=== PATIENT | female | born 1955 | race Caucasian/White ===

== ENCOUNTER 2017-11-21 19:25 | Emergency (ER) | payer SELFPAY ==
[~2017-11-21] VITALS: Ht 154.9 cm; Wt 63.0 kg
[2017-11-21 20:17] LABS: Hematocrit 37.3 % (33.0-51.0); Hemoglobin 12.6 g/dL (11.5-16.0); Mean Corpuscular HGB 29.4 pg (26.0-34.0); Mean Corpuscular HGB Conc 33.8 g/dL (31.5-36.5); Mean Corpuscular Volume 87 fL (80-100); RDW Standard Deviation 38.6 fL (35.1-46.3); Red Blood Cell Count 4.29 M/mm3 (3.80-5.20); White Blood Cell Count 8.24 K/mm3 (4.00-11.30)
[2017-11-21 20:21] LABS: Mean Platelet Volume 10.7 fL (9.1-12.4); Platelet Count 233 K/mm3 (150-400)
[2017-11-21 20:38] LABS: BASOPHILS PERCENT MAN 0 % (0-2); EOSINOPHILS ABSOLUTE MAN 0.16 K/mm3 (0.00-0.68); EOSINOPHILS PERCENT MAN 2 % (0-6); LYMPHOCYTES % ATYPICAL MANUAL 8 % (0-0); LYMPHOCYTES ABSOLUTE MAN 4.36 K/mm3 (0.84-5.20); LYMPHOCYTES PERCENT MAN 45 % (21-46); MONOCYTES ABSOLUTE MAN 0.82 K/mm3 (0.16-1.47); MONOCYTES PERCENT MAN 10 % (4-13); NEUTROPHILS ABSOLUTE MAN 2.88 K/mm3 (1.96-9.15); SEG NEUTROPHILS PERCENT MAN 35 % (41-73); TOTAL CELLS COUNTED 100
[2017-11-21 20:41] LABS: Alanine Aminotransfer (ALT/SGP 22 U/L (12-78); Albumin, Blood 4.2 g/dL (3.4-5.0); Albumin/Globulin Ratio 1.1 (0.8-1.8); Alk Phos 60 U/L (50-136); Anion Gap 7 mmol/L (6-16); Aspartate Aminotrans (AST/SGOT 17 U/L (12-37); Bilirubin, Total 0.2 mg/dL (0.1-1.0); Blood Urea Nitrogen 11 mg/dL (8-24); Bun/Creatinine Ratio 14.2 (12.0-20.0); CO2, Blood 27 mmol/L (21-32); Calcium, Blood 8.8 mg/dL (8.5-10.1); Chloride, Blood 105 mmol/L (98-108); Creatinine, Blood 0.77 mg/dL (0.40-1.00); Globulin, Blood 3.7 g/dL (2.2-4.0); Glomerular Filtration Rate >60 (60-); Glucose, Blood 95 mg/dL (70-99); Potassium, Blood 3.5 mmol/L (3.5-5.5); Sodium, Blood 139 mmol/L (136-145); Total Protein, Blood 7.9 g/dL (6.4-8.2)
[2017-11-21 20:50] LABS: Source, Urine Clean Catch
[2017-11-21 20:57] LABS: Appearance, Urine Clear (Clear); Bilirubin, Urine Neg (Neg); Blood, Urine Neg (Neg); Color, Urine Yellow (P-Yellow); Glucose Qualitative, Urine Neg (Neg); Ketones, Urine Neg (Neg); Leukocyte Esterase, Urine Neg (Neg); Nitrite, Urine Neg (Neg); Protein, Urine Neg (Neg); Urobilinogen, Urine NORM (Normal)
[2017-11-21 20:58] LABS: Troponin I <0.015 ng/mL (0.000-0.040)
[2017-11-21] MEDS ORDERED: Zofran Odt4 MG SL (22:36)
[2017-11-21] MEDS ORDERED: Percocet 5-3251 EACH PO (22:36)
== END 2017-11-21 22:52 | disposition home or self-care (01) ==
LOC: ER 19:25
PROVIDERS: Physician Assistant
DX: R10.11 Right upper quadrant pain (principal); Z88.8 Allergy status to other drugs, medicaments and biological substances; Z87.891 Personal history of nicotine dependence
CPT/HCPCS: 71046; 74177; 76705; 80053; 81003; 83690; 84484; 85025; 93005; 93010; 96361; 96374; 96375; 99284; J1170; J1885; J2405; J7030; Q9967

== ENCOUNTER 2022-07-27 13:46 | Day surgery (SDC) | payer MEDICARE ==
[~2022-07-27] VITALS: Ht 154.9 cm; Wt 59.1 kg
[~2022-07-27 13:46] MED LIST: Percocet 5-3251 EACH PO; Zofran Odt4 MG SL
--- NOTE | 2022-07-27 15:00 | NUR ---
07/27/22 Radha Brown THREE ATTEMPTS AT IV. FIRST ATTEMPT AT IV BY VALDEZ IN RIGHTWRIST MISSED. SECOND ATTEMPT AT IV BY MAN INRIGHT FOREARM MISSED. THIRD ATTEMPT AT IV BY RN IN RIGHT HAND SUCCESSFUL.
== END 2022-07-27 16:09 | disposition home or self-care (01) ==
LOC: ORSCSDS 13:46
PROVIDERS: Surgery
PROC: 0DJD8ZZ Inspection of Lower Intestinal Tract, Via Natural or Artificial Opening Endoscopic (ICD-10-PCS; principal; 2022-07-27 14:45)
DX: R19.5 Other fecal abnormalities (principal); Z87.891 Personal history of nicotine dependence
CPT/HCPCS: J2704; J7120